=== PATIENT | female | born 1990 | race Asian ===

== ENCOUNTER → 2024-10-07 11:12 | Outpatient (REF) | payer OTHER, SELFPAY | LOC: PNTC 11:12 | PROVIDERS: ATTENDING PHYSICIAN Obstetrics & Gynecology | DX: Z32.01 Encounter for pregnancy test, result positive (principal) | CPT/HCPCS: 76801 ==

== ENCOUNTER → 2024-10-28 11:20 | Outpatient (REF) | payer OTHER, SELFPAY | LOC: PNTC 11:20 | PROVIDERS: ATTENDING PHYSICIAN Advanced Practice Midwife | DX: Z36.0 Encounter for antenatal screening for chromosomal anomalies (principal); Z36.82 Encounter for antenatal screening for nuchal translucency | CPT/HCPCS: 76801; 76813 ==

== ENCOUNTER → 2024-11-04 13:49 | Outpatient (REF) | payer OTHER, SELFPAY | LOC: PNTC 13:49 | PROVIDERS: ATTENDING PHYSICIAN Advanced Practice Midwife | DX: Z36.82 Encounter for antenatal screening for nuchal translucency (principal) | CPT/HCPCS: 76801; 76813 ==

== ENCOUNTER → 2024-12-02 08:50 | Outpatient (REF) | payer OTHER, SELFPAY | LOC: PNTC 08:50 | PROVIDERS: ATTENDING PHYSICIAN Student in an Organized Health Care Education/Training Program | DX: O09.519 Supervision of elderly primigravida, unspecified trimester (principal); O09.529 Supervision of elderly multigravida, unspecified trimester | CPT/HCPCS: 76805 ==